=== PATIENT | male | born 1950 | race Caucasian/White ===

== ENCOUNTER 2024-01-10 14:57 | Outpatient (CLI) | payer MEDICARE, SELFPAY | END 2024-01-10 14:58 | disposition home or self-care (01) | PROVIDERS: PCP Family Medicine; Visit Provider Family Medicine | DX: Z13.228 Encounter for screening for other metabolic disorders (principal); Z13.220 Encounter for screening for lipoid disorders; Z12.5 Encounter for screening for malignant neoplasm of prostate; Z11.59 Encounter for screening for other viral diseases | CPT/HCPCS: 80053; 80061; 86803; G0103 ==